=== PATIENT | female | born 1980 | race American Indian/Alaskan Native ===

== ENCOUNTER 2018-02-22 06:55 | Day surgery (SDC) | payer OTHER ==
[2018-02-22] MEDS ORDERED: ANCEF/STERILE WATER 2 GM/20 ML IV NR (07:15)
[2018-02-22] MEDS ORDERED: NACL BACTERIOSTATIC INFILTRATI ONE (07:24)
--- NOTE | 2018-02-22 07:31 | Anesthesia Consultation ---
Anesthesia Consult and Med Hx Date of service: 02/22/18 - Airway Anesthetic Teeth Evaluation: Good ROM Head & Neck: Adequate Mental/Hyoid Distance: Adequate Mallampati Class: Class II Intubation Access Assessment: Good - Pulmonary Exam CTA: Yes - Cardiac Exam Cardiac Exam: No Murmur - Pre-Operative Health Status ASA Pre-Surgery Classification: ASA1 Proposed Anesthetic Plan: General - Central Nervous System Hx Psychiatric Problems: No - Other Systems Hx Alcohol Use: No Hx Substance Use: No Hx Cancer: No
--- NOTE | 2018-02-22 07:32 | Anesthesia Day of Surgery ---
Anesthesia Day of Surgery - Day of Surgery Patient Examined: Yes Patient H&P Reviewed: Yes Patient is NPO: Yes
[2018-02-22] MEDS ORDERED: MARCAINE 0.5% 30 ML INFILTRATI ONE (07:48)
[2018-02-22] MEDS ORDERED: QUELICIN ONE (07:54)
[2018-02-22] MEDS ORDERED: ZOFRAN ONE (07:54)
[2018-02-22] MEDS ORDERED: REGLAN ONE (07:54)
[2018-02-22] MEDS ORDERED: SUBLIMAZE ONE ×2 (07:54→08:46)
[2018-02-22] MEDS ORDERED: XYLOCAINE MPF 2% ONE (07:54)
[2018-02-22] MEDS ORDERED: DIPRIVAN 10 MG/ML IV ONE (07:54)
[2018-02-22] MEDS ORDERED: NEURONTIN PO NR (08:00)
[2018-02-22] MEDS ORDERED: LACTATED RINGERS 1,000 ML IV SCH (08:00)
[2018-02-22] MEDS ORDERED: VERSED IV NR (08:00)
[2018-02-22] MEDS ORDERED: PEPCID PO NR (08:00)
[2018-02-22 08:05] LABS: Hematocrit 35.5 % (30.3-42.9); Hemoglobin 11.8 gm/dl (10.1-14.3)
--- NOTE | 2018-02-22 08:12 | Short Stay Summary ---
Short Stay Documentation Date of service: 02/22/18 Narrative H&P: Pt is s 38yo BF LMP 02/13/18 presents for surgical evaluation and treatment of a left ovarian cyst. CA125 was 17 (WNL). - History Principal diagnosis: Left ovarian cyst H&P: obtained from office Past Medical History: No medical history Past Surgical History: Other (Right ovarian cystectomy) Social history: no significant social history, single - Allergies and Medications Current Medications: Allergies No Known Allergies Allergy (Verified 02/21/18 10:04) Home Medications Medication Instructions Recorded Confirmed Last Taken Type Pregabalin [Lyrica] 300 mg PO DAILY PRN 02/22/18 02/22/18 1 Week Ago History ~02/15/18 Active Medications Cefazolin Sodium (Ancef/Sterile Water 2 Gm/20 Ml) 2 gm IV PREOP NR Stop: 02/22/18 12:00 Celecoxib (Celebrex) 200 mg PO PREOP NR Stop: 02/22/18 10:00 Last Admin: 02/22/18 07:56 Dose: 200 mg Famotidine (Pepcid) 20 mg PO PREOP NR Stop: 02/22/18 10:00 Last Admin: 02/22/18 07:56 Dose: 20 mg Gabapentin (Neurontin) 600 mg PO PREOP NR Stop: 02/22/18 10:00 Last Admin: 02/22/18 07:56 Dose: 600 mg Lactated Ringer's (Lactated Ringers) 1,000 mls @ 100 mls/hr IV DIRECT JENNYFER Last Admin: 02/22/18 07:58 Dose: 100 mls/hr Midazolam HCl (Versed) 2 mg IV PREOP NR Stop: 02/22/18 23:59 - Physical exam General appearance: no acute distress Integumentary: no rash HEENT: Atraumatic Lungs: Clear to auscultation Breasts: deferred Heart: Regular rate Gastrointestinal: normal Female Genitourinary: deferred Rectal Exam: deferred Extremities: no ischemia Neurological: Normal gait, Normal speech - Brief post op/procedure progress note Date of procedure: 02/22/18 Pre-op diagnosis: Left ovarian cyst Post-op diagnosis: other (Right ovarian cyst) Procedure: Laparoscopic right ovarian cystectomy Anesthesia: GETA Findings: A normal uterus with normal fallopian tubes bilaterally. A normal left ovary with a cystic right ovary. Normal appendix. Surgeon: ELIE SALVADOR Estimated blood loss: minimal Pathology: list (right ovarian cyst) Specimen disposition: to lab Condition: stable - Hospital course Hospital course: Unremarkable - Disposition Condition at discharge: Good Disposition: DC- TO HOME OR SELFCARE - Discharge Diagnoses (1) Right ovarian cyst Status: Resolved Short Stay Discharge Plan Activity: no restrictions Diet: regular Wound: open to air, keep clean and dry Follow up with: PRIMARY CARE, [Primary Care Provider] - 7 Days ELIE SALVADOR MD [Staff Physician] - 14 Days Prescriptions: HYDROcodone/APAP 5-325 [[place] 5/325] 1 each PO Q6HR PRN #20 tablet PRN Reason: Pain
[2018-02-22] MEDS ORDERED: ZEMURON IV ONE (08:49)
[2018-02-22] MEDS ORDERED: MARCAINE 0.5% INFILTRATI ONE (08:50)
[2018-02-22] MEDS ORDERED: NACL 0.9% IR ONE (08:50)
[2018-02-22] MEDS ORDERED: ANCEF/STERILE WATER 2 GM/20 ML 2 GM/20 ML SYRINGE IV NR (09:00)
[2018-02-22] MEDS ORDERED: BLOXIVERZ ONE (09:00)
[2018-02-22] MEDS ORDERED: ROBINUL ONE (09:12)
[2018-02-22] MEDS ORDERED: DILAUDID ONE (09:58)
[2018-02-22] MEDS: DILAUDID IV PRN ×2 (10:00→10:10)
[2018-02-22] MEDS ORDERED: ZOFRAN IV PRN (10:00)
--- NOTE | 2018-02-22 10:02 | Operative Report ---
Operative Report Operative Report: Date of procedure: 02/22/2018 Pre-operative diagnosis: Left ovarian cyst Post-operative diagnosis: Right ovarian cyst Procedure name(s): Laparoscopic right ovarian cystectomy Surgeon: Haim Cuadra MD [employer] Metal Sprayer: None Anesthesia: Gen. endotracheal intubation by Dr. Mendoza EBL: 10 mL Findings: A normal uterus with normal fallopian tubes bilaterally. Normal left ovary with a cystic right ovary. Normal appendix. Procedure: After the patient was correctly identified, she was prepped and draped in the usual sterile fashion and placed in the dorsolithotomy position. First the bladder was emptied using a straight catheter, then the speculum was placed in the vaginal vault and the anterior lip of the cervix was grasped using single-tooth tenaculum. The uterine manipulator was then placed and the tenaculum and speculum were removed. Attention was then turned to the abdomen where first a periumbilical incision was made using the skin knife, and the Optiview trocar was inserted under direct visualization. After an adequate amount of abdominal insufflation, visualization of the pelvic organs found the uterus to be normal with normal fallopian tubes bilaterally. The left ovary was normal and the right ovary was cystic and enlarged. The appendix was also visualized and found to be normal. Next the suprapubic incision and the right lateral incision was made through which 5 mm trochars were placed under direct visualization. The tripolar cautery was used to excise the right ovarian cyst, and the base of the ovary was cauterized. The right ovarian cyst wall was removed and sent to pathology. The Tisseel sealant was sprayed across the ovarian cystectomy site, and excellent hemostasis was achieved. At this point the procedure was considered complete. All instruments removed from the abdomen. The abdomen was deflated, and the periumbilical incision was closed using 0 Vicryl suture in a figure configuration of the fascia, followed by 4-0 Monocryl suture in a subcuticular fashion on the skin. The suprapubic and right lateral incisions were closed in similar fashion. Each incision was infiltrated using 0.25% Marcaine solution. The uterine manipulator was removed. The patient tolerated the procedure well and was transported to recovery in stable condition.
[2018-02-22] MEDS ORDERED: DEMEROL IV PRN (10:27)
[2018-02-22] MEDS ORDERED: NORCO 5/325 PO PRN (10:29)
[2018-02-22 12:43] VITALS: BP 148/64
== END 2018-02-22 12:10 | disposition home or self-care (01) ==
LOC: OR 06:55 → EDBD 07:00 → OR 12:10
PROVIDERS: ATTEND Obstetrics & Gynecology
DX: N83.201 Unspecified ovarian cyst, right side (principal); Z86.73 Personal history of transient ischemic attack (TIA), and cerebral infarction without residual deficits; Z98.890 Other specified postprocedural states; Z79.899 Other long term (current) drug therapy
CPT/HCPCS: 36415; 58662; 81025; 85014; 85018; 88305; C9250; J0330; J0690; J1170; J2175; J2250; J2405; J2704; J2710; J2765; J3010; J7120